=== PATIENT | male | born 1930 | race Caucasian/White ===

== ENCOUNTER 2017-05-01 14:26 | Observation (INO) ==
--- OUTSIDE RECORDS SUMMARY | 2017-05-01 15:17 | External Medical Summary ---
:1930 Author Organization eClinicalWorks Care Team Providers Name Role Phone Heavenly Montejo Provider Role Unavailable Allergies No Known Allergies Problems Problem Type Condition Code Onset Dates Condition Status Problem Unspecified atrial fibrillation I48.91 Active Problem Chronic obstructive pulmonary J44.9 Active disease, unspecified Problem Essential (primary) hypertension I10 Active Assessment Unspecified atrial fibrillation I48.91 Active Medications Medication Code System Code Instructions Start End Date Status Dosage Date Budesonide [facility] 42989-972 0.5 MG/2ML 1 ml 6-73 Inhalation Twice a day Brovana [facility] 72385-718 15 MCG/2ML 2 ml 1-30 Inhalation Twice a day Losartan [facility] 07723-102 25 MG Orally Once 1 tablet Potassium 3-22 a day Warfarin Sodium [facility] 88453-999 1 MG Orally take 1 tablet 1-01 as directed Procedures Procedure Coding System Code Date PROTIME INR, IN HOUSE CPT-4 12592 Mar 12, 2015 Results Name Result Date Reference Range Unit Abnormality Flag In House Protime INR ----results 2.8 [id number] Summary Purpose eClinicalWorks Submission
--- OUTSIDE RECORDS SUMMARY | 2017-05-01 15:17 | External Medical Summary ---
:1930 Author Organization [employer] Care Team Providers Name Role Phone Heavenly Montejo Provider Role Unavailable Allergies No Known Allergies Problems Problem Type Condition ICD-9 Code Onset Dates Condition Status Assessment Atrial fibrillation 427.31 Active Medications No Known Medications Procedures Procedure Coding System Code Date PROTIME INR, IN HOUSE CPT-4 15117 Nov 27, 2014 Results Name Result Date Reference Range Unit Abnormality Flag In House Protime INR Summary Purpose eClinicalWorks Submission
--- OUTSIDE RECORDS SUMMARY | 2017-05-01 15:17 | External Medical Summary ---
:1930 Author Organization eClinicalWorks Care Team Providers Name Role Phone Heavenly Montejo Provider Role Unavailable Allergies No Known Allergies Problems Problem Type Condition Code Onset Dates Condition Status Problem Unspecified atrial fibrillation I48.91 Active Problem Chronic obstructive pulmonary J44.9 Active disease, unspecified Problem Essential (primary) hypertension I10 Active Assessment Chronic obstructive pulmonary J44.9 Active disease, unspecified Assessment Essential (primary) hypertension I10 Active Assessment Unspecified atrial fibrillation I48.91 Active Medications Medication Code System Code Instructions Start End Date Status Dosage Date Budesonide [facility] 29521-377 0.5 MG/2ML 1 ml 6-73 Inhalation Twice a day Losartan [facility] 91047-477 25 MG Orally Once 1 tablet Potassium 3-22 a day Brovana [facility] 98141-368 15 MCG/2ML 2 ml 1-30 Inhalation Twice a day Warfarin Sodium [facility] 73502-690 3 MG Orally Two 1 tablet 3-01 times a Week Procedures Procedure Coding System Code Date COMPLETE CBC W/AUTO DIFF WBC CPT-4 37162 Dec 25, 2014 COMPREHENSIVE METABOLIC PANEL CPT-4 87164 Dec 25, 2014 PROTIME INR, IN HOUSE CPT-4 67933 Dec 25, 2014 LIPID PANEL CPT-4 13705 Dec 25, 2014 Results Name Result Date Reference Range Unit Abnormality Flag In House Protime INR Summary Purpose eClinicalWorks Submission
[2017-05-01] MEDS ORDERED: SALINE FLUSH 10ml SYRINGE IVF PRN (15:24)
[2017-05-01] MEDS ORDERED: ALBUTEROL/IPRATROPIUM 2.5mg-0.5mg/3ml NEB IH ONE (15:24)
--- NOTE | 2017-05-01 16:03 | Emergency Department Report ---
Asthma HPI - General Chief Complaint: Upper Respiratory Infection Stated Complaint: cough chest pain Time Seen by Provider: 05/01/17 15:09 Source: patient, family, RN notes reviewed, old records reviewed Mode of arrival: ambulatory Limitations: no limitations - History of Present Illness HPI Narrative: 87yo man presents to the ER today for dyspnea. Pt was c/o some dyspnea earlier today; they asked a friend (a former [employer]) to come listen to pts lungs. Friend brought a pulse oximeter and SaO2 was read as 86%. Friend then referred pt to the ER for further evaluation. Pt has a h/o COPD; has a rescue inhaler, but does not use it regularly. MD complaint: shortness of breath Onset (ago): hour(s) Severity: moderate, similar to prior Context: other (COPD) Associated symptoms: none Treatments Prior to Arrival: inhaled bronchodilator, inhaled steroid, oxygen - Related Data Current Asthma Therapy: inhaled bronchodilator, inhaled steroid Home Medications Medication Instructions Recorded Confirmed Arformoterol Neb [Brovana Neb] 1 vial INH DAILY 01/07/17 05/01/17 Budesonide [Budesonide] 1 ampul INH DAILY 01/07/17 05/01/17 Losartan Potassium [Cozaar] 25 mg PO DAILY 01/07/17 05/01/17 Warfarin [Coumadin] 2 mg PO QTUTHSASU 01/07/17 05/01/17 Warfarin [Coumadin] 3 mg PO QMWF 01/07/17 05/01/17 Allergies Allergy/AdvReac Type Severity Reaction Status Date / Time No Known Drug Allergies Allergy Unknown Verified 05/01/17 15:10 Review of Systems All systems: reviewed and negative except as stated Respiratory: Reports: as per HPI, cough, dyspnea, wheezes. Denies: hemoptysis, stridor [facility] Patient Stated Medical History Hearing Loss Yes Cardiac Arrhythmia Yes: A FIB Hypertension Yes Chronic Obstructive Pulmonary Yes Disease (COPD) Pneumonia Yes: HX OF Sleep Apnea No Other GI Yes: HERNIA Hx Benign Prostatic Yes Hyperplasia Hx Kidney Stones Yes Clinic Medical History (Last Updated 02/16/17 @ 11:57 by Stephanie Cartagena APRN) Atrial fibrillation (Acute Medical) COPD (chronic obstructive pulmonary disease) (Acute Medical) HTN (hypertension) (Acute Medical) Stones, prostate (Acute Medical) Surgical History: Inguinal hernia repair 3 and 1972 Family History: Family History (Last Updated 02/16/17 @ 12:00 by Stephanie Cartagena APRN) Father Stomach cancer Mother Diabetes Heart attack HTN (hypertension) - Social History Smoking status: Former smoker Physical Exam - Limitations Limitations: no limitations - General General appearance: alert, in no apparent distress, obese - Normal Exams: Head:: Normocephalic without trauma Eyes:: Pupils are PERRLA w/ EOMI, No scleral icterus, irritation, or foreign bodies noted ENMT:: No facial trauma, nasal exudates, pharyngeal erythema, or exudates are noted Neck:: Full range of motion, without adenopathy Lymphatic:: No lymphadenopathy Musculoskeletal:: No tenderness, or deformity noted, good range of motion Integumentary:: No rashes, hives, or bruising noted Neurological:: Patient is alert, and oriented Psychiatric:: Patient exhibits, appropriate attention - Chest Chest inspection: Present: normal inspection, symmetric chest wall rise - Respiratory Respiratory exam: Present: wheezes, prolonged expiratory phase. Absent: normal lung sounds bilaterally (No air movement in lower lobes), respiratory distress, stridor, crackles - Cardiovascular Cardiovascular exam: Present: normal rhythm, irregular rhythm, normal heart sounds. Absent: regular rate - Abdominal Exam Abdominal exam: Present: soft, normal bowel sounds, other (Ventral hernia just inferior to xyphoid process). Absent: distention, tenderness, guarding, rebound , rigidity - Extremities Exam Extremities exam: Present: normal inspection, full ROM, normal capillary refill. Absent: tenderness, pedal edema Course - Consultations Consultation #1: Dr. Jacinto: Recommends overnight obs with echo in the AM. Time: 17:26 Consultation #2: Hospitalist: Time: 17:39 Vital Signs Temperature 98.3 F 05/01/17 14:30 Pulse Rate 95 05/01/17 14:30 Respiratory Rate 28 H 05/01/17 14:30 Blood Pressure 158/91 H 05/01/17 14:30 Pulse Oximetry 94 05/01/17 14:30 Temperature 98.3 F 05/01/17 14:30 Pulse Rate 86 05/01/17 17:15 Respiratory Rate 30 H 05/01/17 17:15 Blood Pressure 145/79 H 05/01/17 17:15 Pulse Oximetry 95 05/01/17 17:15 Dyspnea - MDM Narrative Medical decision making narrative: Pt with new-onset CHF. Sx improved with IV lasix. After discussion with note taker, will contact hospitalist for overnight obs and echo in the AM. Pt voiced understanding of dx, prognosis, tx, and f/u need. - Differential Diagnosis Differential diagnosis: Likely: Pneumonia, COPD exacerbation, Pulmonary edema systolic, Pulmonary edema dystolic, Pneumothorax - Medical Records Attestation: I reviewed the patient's medical records. - Lab Data Attestation: I reviewed the patient's lab results. Result diagrams: 05/01/17 15:57 05/01/17 15:57 Lab Results 05/01/17 05/01/17 05/01/17 Range/Units 15:57 15:57 16:58 WBC 8.2 (4.5-11.0) T/MM3 RBC 5.70 (4.50-5.90) M/MM3 Hgb 17.8 H (13.5-17.5) GM/DL Hct 55.1 H (41-53) % MCV 96.7 (80-100) UM3 MCH 31.2 (26-34) UUG MCHC 32.3 (31-37) GM/DL RDW Std Deviation 48.6 (36.9-50.2) FL Plt Count 134 (130-400) T/MM3 MPV 10.3 (9.4-12.4) UM3 Immature Gran % (Auto) 0.2 (0.0-0.5) % Neut % (Auto) 69.1 H (33-66) % Lymph % (Auto) 19.9 L (23-45) % [place] % (Auto) 10.2 H (0-9.0) % Eos % (Auto) 0.2 (0-4) % Baso % (Auto) 0.4 (0-2) % Neut # (Auto) 5.7 (1.8-7.7) T/MM3 Lymph # (Auto) 1.6 (1-4.8) T/MM3 [place] # (Auto) 0.8 (0-0.8) T/MM3 Eos # (Auto) 0.0 (0-0.5) T/MM3 Baso # (Auto) 0.0 (0-0.2) T/MM3 Abs Immat Gran (auto) 0.02 (0.00-0.03) T/MM3 Turbidity < 20 (0-20) Sodium 145 H (134-144) MEQ/L Potassium 4.6 (3.6-5) MEQ/L Chloride 103 (98-107) MEQ/L Carbon Dioxide 30 (22-30) MEQ/L Anion Gap 12 (5-15) MEQ/L BUN 33.0 H (9-20) MG/DL Creatinine 1.2 (0.8-1.5) MG/DL GFR Calculation 57 BUN/Creatinine Ratio 28 H (6-26) RATIO Glucose 112 H (75-110) MG/DL Calculated Osmolality 287 H (261-280) MOSM/KG Calcium 9.4 (8.4-10.2) MG/DL Icterus Index < 2 (0-7) Troponin I < 0.012 (0-0.12) ng/ml B-Natriuretic Peptide 1210 H (0-175) pg/mL Specimen Hemolysis < 15 (0-25) Ur Collection Type Urine, void-cc/notcc Urine Color Yellow (YELLOW) Urine Clarity Clear Urine pH 5.5 (5.0-8.0) Ur Specific [place] 1.020 (1.015-1.025) Urine Protein 1+ A (NEGATIVE) Urine Glucose (UA) Negative (NEGATIVE) Urine Ketones Negative (NEGATIVE) Urine Occult Blood 3+ A (NEGATIVE) Urine Nitrate Negative (NEGATIVE) Urine Bilirubin Negative (NEGATIVE) Urine Urobilinogen 0.2 (NORMAL) EU/DL Ur Leukocyte Esterase Negative (NEGATIVE) Urine RBC 10-20 H (0-3) /HPF Urine WBC 0-1 (0-5) /HPF Ur Squamous Epith Cells 0-5 Urine Bacteria Trace H (NEGATIVE) Ur Culture Indicated? Cult not indicated - Radiology Data Attestation: I reviewed the patient's radiology results. CXR: Improved chest. No acute CT pathology. B/l lower lobe parenchymal opacities c/w pulm congestion vs atalectasis - EKG Data EKG #1 EKG attestation: Yes: I reviewed and interpreted this EKG. EKG shows normal: axis, intervals, ST-T waves Rhythm: A.Fib, PVC's Disposition Clinical Impression: CHF (congestive heart failure) Qualifiers: Heart failure type: unspecified Heart failure chronicity: acute Qualified Code( s): I50.9 - Heart failure, unspecified Disposition: 02 To OBS [facility] Print Language: [place] Condition: Improved Prescriptions: No Action Warfarin [Coumadin] 2 mg PO QTUTHSASU Arformoterol Neb [Brovana Neb] 1 vial INH DAILY Losartan Potassium [Cozaar] 25 mg PO DAILY Warfarin [Coumadin] 3 mg PO QMWF Budesonide [Budesonide] 1 ampul INH DAILY Referrals: Meenakshi Crump APRN [Family Provider] - Time of Disposition: 17:45 - Seen By: physician
[2017-05-01] MEDS ORDERED: FUROSEMIDE 40 MG/4 ML INJECTION IVP ONE (16:29)
[2017-05-01 18:43] VITALS: BMI 25.9
[2017-05-01] MEDS ORDERED: ONDANSETRON 4 MG/2 ML INJECTION IVP PRN (18:57)
[2017-05-01] MEDS ORDERED: ACETAMINOPHEN 325 MG TABLET PO PRN (18:57)
[2017-05-01] MEDS ORDERED: MORPHINE SULFATE 2mg INJECTION IVP PRN (18:57)
[2017-05-01] MEDS ORDERED: ALBUTEROL/IPRATROPIUM 2.5mg-0.5mg/3ml NEB AEROSOL PRN (19:01)
--- NOTE | 2017-05-01 19:13 | XRay Report ---
Indication: Dyspnea XR chest 2V: Comparison: 03/10/2017 Technique: 2 view chest Findings: Patient showed normal heart, mediastinum and central vascularity. Along the right lateral chest wall a questional subtle density is identified which is slightly better delineated on the current study. Follow-up in the 2-3 months recommended to reassess this potential finding. Impression: Since prior study the heart, mediastinum and central vascularity are stable. Questionable subtle area of slightly more localized density laterally in the right mid chest. .
--- NOTE | 2017-05-01 20:10 | History & Physical Report ---
History of Present Illness Date: 05/01/17 Chief complaint: shortness of breath HPI: Mr. Arnett is an 87-year-old male who presented to the emergency room today after oxygen saturation was evaluated by a friend when the patient complained of dyspnea. His oxygen saturation was found to be 86% and his friend recommended that he have further evaluation in the emergency room. Patient has a history of COPD and has used an inhaler in the past but does not do so regularly. He describes being short of breath for 2-3 months with occasional wheezing and feeling as though his chest has been congested. He has a cough which has been productive of yellow sputum. He denies fever, chills, or sweats but reports he is cough frequently enough that it now hurts when he coughs although he has no pain with deep inspiration. He doesn't believe he has been retaining fluid and he's had no difficulty breathing laying flat. He denies PND. Chest x-ray in the emergency room was interpreted's having some increased vascular markings and proBNP was modestly elevated. The emergency room physician discussed the case with his telecom sales consultant and the patient was subsequently treated with a dose of Lasix. He is being hospitalized now for reassessment and further evaluation. The patient denies any chest pain unrelated to cough and has had no palpitations. Review of Systems All systems PM: 10-point ROS was reviewed, no additional remarkable complaints except (hearing loss, bruises easily, several episodes of epistaxis in the past 1-2 weeks, remainder of review of systems was negative or as per history of present illness.) Past Medical History Past Medical History Atrial fibrillation COPD (chronic obstructive pulmonary disease) HTN (hypertension) Nephrolithiasis History BPH Surgical History: Inguinal hernia repair x3 1979's and 1972, TURP, cystoscopy/ lithotripsy and insertion of left ureteral stent 2010 Family History: Family History (Last Updated 02/16/17 @ 12:00 by Stephanie Cartagena APRN) Father Stomach cancer Mother Diabetes Heart attack HTN (hypertension) Family History Updates: Sister is of unknown causes - Social History Smoking status: Former smoker (discontinued more than 20 years) Substance use type: does not use Alcohol intake frequency: does not drink Household members: spouse Current occupational status: retired ([place] in [place]) Social history: PCP-Leyla Crump APRN Cardiology-Dr. Mendoza Jacinto Full code Alternate decision maker the patient's -Clair Medications Home Medications Medication Instructions Recorded Confirmed Type Arformoterol Neb [Brovana Neb] 1 vial INH DAILY 01/07/17 05/01/17 History Budesonide [Budesonide] 1 ampul INH DAILY 01/07/17 05/01/17 History Losartan Potassium [Cozaar] 25 mg PO DAILY 01/07/17 05/01/17 History Warfarin [Coumadin] 2 mg PO QTUTHSASU 01/07/17 05/01/17 History Warfarin [Coumadin] 3 mg PO QMWF 01/07/17 05/01/17 History Allergies Allergy/AdvReac Type Severity Reaction Status Date / Time No Known Drug Allergies Allergy Unknown Verified 05/01/17 15:10 Exam Vital Signs: Temperature 96.8 F 05/01/17 18:25 Pulse Rate 91 05/01/17 18:25 Respiratory Rate 24 05/01/17 18:25 Blood Pressure 160/77 H 05/01/17 18:25 Pulse Oximetry 92 - RA 05/01/17 18:25 EXAM: General-NAD, alert, hard of hearing HEENT-PERRL, EOMI without nystagmus, conjugate gaze, conjunctiva clear, sclera anicteric, facial structures symmetric, oropharynx clear, neck supple and without adenopathy Lungs-respirations nonlabored, good airflow, faint wheezes posterior waters, anterior waters clear Cardiac-irregular rhythm, S1-S2; lying with head of bed raised approximately 20 Abd-soft, nontender, without palpable mass, bowel sounds present Ext-without edema Skin-large bruise at the left wrist, increased vascularity over the cheeks bilaterally Neuro-cranial nerves 3-12 intact except hearing loss, motor tone/power within normal limits, sensation intact to light touch/cold 4 extremities Psych-calm, cooperative, euthymic Height/Weight/BMI: Height 1.7 m Weight 75 kg Body Mass Index 25.9 Results - Labs CBC & Chem 7: 05/01/17 15:57 05/01/17 15:57 Labs: Troponin nondetectable in the ER ProBNP 1210 UA with +3 occult blood, 10-20 RBC, 0-1 WBC - Imaging and Cardiology Chest x-ray Status: image reviewed by me (heart size normal, NAD, possibly slightly increased vascular markings although not dramatic.) Assessment and Plan (1) Hypoxia Current visit: Yes Status: Acute Assessment and Plan: Impression: Hypoxia, transient Dyspnea, chronic CHF with exacerbation COPD, possible exacerbation Atrial fibrillation, chronic Hypertension Elevated hemoglobin Plan: Diuresis was initiated in the emergency room, monitor oxygenation overnight. Consult Dr. Jacinto. Serial troponins, echocardiogram in a.m. Monitor on telemetry. Home breathing treatments with Pulmicort and Brovana (both increased to twice a day), albuterol/Atrovent as needed. Respiratory viral panel and sputum culture being obtained. Oxygenation transiently depressed in the emergency room although subsequently stable on room air. Overnight oximetry to be obtained. Several episodes of epistaxis recently-INR to be evaluated in a.m.; Hold warfarin pending results. Blood pressure modestly elevated, reassess in a.m. DVT Prophylaxis: Coumadin Resuscitation Status: Full Code - Physician Narrative Narrative: Date: 05/01/17 Time: 2006 Hospital Course Summary Disclaimer: The visit summary below is not to be considered part of the above Progress Note. Hospital Course: 05/01/17 Admitted with dyspnea, cough, and transient hypoxia. Diuresis was initiated in the emergency room, monitor oxygenation overnight. Consult Dr. Jacinto. Serial troponins, echocardiogram in a.m. Monitor on telemetry. Home breathing treatments with Pulmicort and Brovana (both increased to twice a day), albuterol/Atrovent as needed. Respiratory viral panel and sputum culture being obtained. Oxygenation transiently depressed in the emergency room although subsequently stable on room air. Overnight oximetry to be obtained. Several episodes of epistaxis recently-INR to be evaluated in a.m.; Hold warfarin pending results. Blood pressure modestly elevated, reassess in a.m. Full code.
[2017-05-01] MEDS: BUDESONIDE 0.5 MG/2 ML AEROSOL SCH (21:06)
[2017-05-01] MEDS: ARFORMOTEROL 15 MCG/2 ML AEROSOL SCH (21:06)
[2017-05-02 05:19] VITALS: O2SAT 94
[2017-05-02] MEDS: ARFORMOTEROL 15 MCG/2 ML AEROSOL SCH (07:30)
[2017-05-02] MEDS: BUDESONIDE 0.5 MG/2 ML AEROSOL SCH (07:30)
[2017-05-02 07:44] VITALS: RESP 20
[2017-05-02] MEDS ORDERED: ARFORMOTEROL NEB 15mcg/2ml AEROSOL SCH ×2 (09:00)
[2017-05-02] MEDS ORDERED: LOSARTAN 25 MG PO SCH (09:00)
[2017-05-02] MEDS ORDERED: WARFARIN 4 MG TABLET PO SCH (12:00)
--- NOTE | 2017-05-02 12:56 | Cardiology Consult Note ---
<Shantal Garcia Gregorio - Last Filed: 05/02/17 19:08> History of Present Illness Consult reason: shortness of breath History of present illness: Mr. Bj Arnett is a 87 year old male who has a history of atrial fibrillation on Warfarin, COPD and HTN. Pt was complaining of dyspnea yesterday and friend came over with oxygen sat and it was 85%. brought to ER. In ER, he had elevated BNP and Lasix was given - pt had large urine output so heart failure was questioned. Pt has had cough with yellow/green sputum for last 5-6 days due to a cold he said. Pt denied chest pain, heart palpitations, dizziness/ lightheadedness. Pt denies PND or orthopnea. Pt complains of epigastric pain toward bilateral breasts - he felt like he was getting full. Pt said the fullness lasted only a few minutes. Coughing aggravated the pain and was relieved when he quit coughing. Pt has hx of COPD - does not wear O2 at home. Pt 's is at bedside. Pt sees Dr. Luke in [place]. Pt is on Warfarin - every Tuesday INR is checked by [place] Mcguire. Pt is positive for influenza A. Review of Systems All systems PM: 10-point ROS was reviewed, no additional remarkable complaints except (hard of hearing, + epistaxis in last 1-2 weeks) [facility] Medical History (Last Updated 05/01/17 @ 20:42 by Perla Calderon MD) Stones, prostate (Ruled-out Medical) COPD (chronic obstructive pulmonary disease) (Acute Medical) HTN (hypertension) (Chronic Medical) Atrial fibrillation (Chronic Medical) BPH (benign prostatic hyperplasia) (Resolved Medical) Nephrolithiasis (Resolved Medical) Surgical History: Inguinal hernia repair x3 1979's and 1972, TURP, cystoscopy/ lithotripsy and insertion of left ureteral stent 2010 Family History: Family History (Last Reviewed 05/01/17 @ 20:15 by Perla Calderon MD) Father Stomach cancer Mother Diabetes Heart attack HTN (hypertension) - Social History Smoking status: Former smoker (discontinued more than 20 years) Medications Home Medications Medication Instructions Recorded Confirmed Type Losartan Potassium [Cozaar] 25 mg PO DAILY 01/07/17 05/01/17 History Allergies Allergy/AdvReac Type Severity Reaction Status Date / Time No Known Drug Allergies Allergy Unknown Verified 05/01/17 15:10 Exam Vital signs: Temperature 95.4 F L 05/02/17 08:12 Pulse Rate 85 05/02/17 10:00 Respiratory Rate 20 05/02/17 08:12 Blood Pressure 133/81 05/02/17 08:12 Pulse Oximetry 94 05/02/17 08:12 - Constitutional no acute distress, well developed, cooperative - Routine HEENT Exam Head: Present: normocephalic, atraumatic Eye: Present: EOMI, PERRL ENT: Present: mucous membranes moist - Routine Neck Exam Present: supple, full ROM, normal carotid upstroke. Absent: JVD, carotid bruit - Routine Respiratory Exam Present: CTA bilaterally, diminished air movement - Routine Cardiovascular Exam Present: irregularly irregular. Absent: no murmur, gallop, rubs - Routine Abdominal Exam Present: soft, normoactive bowel sounds, non distended, non tender. Absent: rebound, guarding, organomegaly, mass - Routine Extremities Exam Present: no edema, pulses intact, normal capillary refill. Absent: cyanosis, clubbing, edema - Routine Skin Exam Present: intact, dry, lesions (bilateral LE varicosities), scars (L ankle). Absent: cyanosis, erythema - Routine Neurological Exam Present: alert, oriented X3, CN II-XII intact, moving all extremities, vision grossly intact, normal speech - Routine Psychiatric Exam Present: normal affect, cooperative Results 05/02/17 04:17 05/02/17 04:17 Cardiac Enzymes 05/01/17 05/02/17 Range/Units 21:43 04:17 Troponin I 0.028 D 0.020 (0-0.12) ng/ml CBC 05/02/17 Range/Units 04:17 WBC 6.9 (4.5-11.0) T/MM3 RBC 5.61 (4.50-5.90) M/MM3 Hgb 17.4 (13.5-17.5) GM/DL Hct 53.7 H (41-53) % Plt Count 135 (130-400) T/MM3 Neut # (Auto) 4.1 (1.8-7.7) T/MM3 Lymph # (Auto) 1.8 (1-4.8) T/MM3 Menard # (Auto) 0.9 H (0-0.8) T/MM3 Eos # (Auto) 0.0 (0-0.5) T/MM3 Baso # (Auto) 0.0 (0-0.2) T/MM3 Comprehensive Metabolic Panel 05/02/17 Range/Units 04:17 Sodium 144 (134-144) MEQ/L Potassium 4.3 (3.6-5) MEQ/L Chloride 101 (98-107) MEQ/L Carbon Dioxide 30 (22-30) MEQ/L BUN 36.0 H (9-20) MG/DL Creatinine 1.2 (0.8-1.5) MG/DL Glucose 105 (75-110) MG/DL Calcium 9.4 (8.4-10.2) MG/DL Albumin 4.1 (3.5-5.0) G/DL Intake and Output 05/01/17 05/02/17 05/02/17 22:59 06:59 14:59 Intake Total 200 / 200 190 / 190 Output Total 550 / 550 Balance -550 / -550 200 / 200 190 / 190 Intake: Oral 200 / 200 190 / 190 Output: Urine 550 / 550 Other: Urine Appearance Clear Urine Color Yellow Urine Odor Normal # Voids 1 Weight 75 kg 74 kg Patient Weight 05/03/17 06:59 Weight 74 kg - Imaging and Cardiology EKG results: image reviewed (atrial fibrillation in 60s-80s with occasional PVC ; 3 beats NSVT) Imaging & Cardiology Narrative: 05/02/17 13:35 CXR on 05/01/17 Since prior study the heart, mediastinum and central vascularity are stable. Questionable subtle area of slightly more localized density laterally in the right mid chest. 05/02/17 13:37 per pt and , August 2016 was last nuclear stress test with Dr. Luke and it was negative 05/02/17 19:04 Echo 05/02/17 Please refer to echo report. Assessment and Plan - Assessment and Plan elevated BNP without clinical or radiographical evidence of heart failure atrial fibrillation, chronic - on Warfarin NSVT, asymptomatic COPD exacerbation with influenza A No BB for NSVT d/t wheezing. Clear from our standpoint to send home. Pt was personally seen and interviewed by Dr. [place] Jacinto who created the A&P. Hospital Course Summary Disclaimer: The visit summary below is not to be considered part of the above Progress Note. Hospital Course: 05/01/17 Admitted with dyspnea, cough, and transient hypoxia. Diuresis was initiated in the emergency room, monitor oxygenation overnight. Consult Dr. Jacinto. Serial troponins, echocardiogram in a.m. Monitor on telemetry. Home breathing treatments with Pulmicort and Brovana (both increased to twice a day), albuterol/Atrovent as needed. Respiratory viral panel and sputum culture being obtained. Oxygenation transiently depressed in the emergency room although subsequently stable on room air. Overnight oximetry to be obtained. Several episodes of epistaxis recently-INR to be evaluated in a.m.; Hold warfarin pending results. Blood pressure modestly elevated, reassess in a.m. Full code. <Riddhi Jacinto - Last Filed: 05/02/17 19:47> [facility] Medical History (Last Updated 05/01/17 @ 20:42 by Perla Calderon MD) Stones, prostate (Ruled-out Medical) COPD (chronic obstructive pulmonary disease) (Acute Medical) HTN (hypertension) (Chronic Medical) Atrial fibrillation (Chronic Medical) BPH (benign prostatic hyperplasia) (Resolved Medical) Nephrolithiasis (Resolved Medical) Family History: Family History (Last Reviewed 05/01/17 @ 20:15 by Perla Calderon MD) Father Stomach cancer Mother Diabetes Heart attack HTN (hypertension) Exam Vital signs: Temperature 97.8 F 05/02/17 15:21 Pulse Rate 67 05/02/17 17:15 Respiratory Rate 20 05/02/17 15:21 Blood Pressure 116/73 05/02/17 15:21 Pulse Oximetry 94 05/02/17 15:21 Results 05/02/17 04:17 05/02/17 04:17 Cardiac Enzymes 05/01/17 05/02/17 Range/Units 21:43 04:17 Troponin I 0.028 D 0.020 (0-0.12) ng/ml CBC 05/02/17 Range/Units 04:17 WBC 6.9 (4.5-11.0) T/MM3 RBC 5.61 (4.50-5.90) M/MM3 Hgb 17.4 (13.5-17.5) GM/DL Hct 53.7 H (41-53) % Plt Count 135 (130-400) T/MM3 Neut # (Auto) 4.1 (1.8-7.7) T/MM3 Lymph # (Auto) 1.8 (1-4.8) T/MM3 Menard # (Auto) 0.9 H (0-0.8) T/MM3 Eos # (Auto) 0.0 (0-0.5) T/MM3 Baso # (Auto) 0.0 (0-0.2) T/MM3 Comprehensive Metabolic Panel 05/02/17 Range/Units 04:17 Sodium 144 (134-144) MEQ/L Potassium 4.3 (3.6-5) MEQ/L Chloride 101 (98-107) MEQ/L Carbon Dioxide 30 (22-30) MEQ/L BUN 36.0 H (9-20) MG/DL Creatinine 1.2 (0.8-1.5) MG/DL Glucose 105 (75-110) MG/DL Calcium 9.4 (8.4-10.2) MG/DL Albumin 4.1 (3.5-5.0) G/DL Intake and Output 05/02/17 05/02/17 05/02/17 06:59 14:59 22:59 Intake Total 200 / 200 190 / 190 Output Total 450 / 450 Balance 200 / 200 190 / 190 -450 / -450 Intake: Oral 200 / 200 190 / 190 Output: Urine 450 / 450 Other: Urine Appearance Clear Urine Color Yellow Urine Odor Normal # Voids 1 Weight 74 kg Patient Weight 05/03/17 06:59 Weight 74 kg Assessment and Plan - Assessment and Plan I personally interviewed and examined pt and agree with the above Hospital Course Summary Disclaimer: The visit summary below is not to be considered part of the above Progress Note.
[2017-05-02] MEDS ORDERED: PredniSONE 20 MG TABLET PO SCH (14:39)
[2017-05-02 15:24] VITALS: BP 116/73; TEMP 97.8
[2017-05-02 17:15] VITALS: PULSE 67
--- NOTE | 2017-05-02 20:00 | Echocardiogram ---
DATE OF STUDY 05/02/2017 INDICATIONS Elevated BNP, hypoxemia, ? congestive heart failure. TECHNICAL QUALITY Technically good 2D, M-mode, Doppler echocardiographic images were submitted for interpretation. FINDINGS 1. CARDIAC CHAMBERS: All cardiac chamber measurements are normal. My measurement of the left atrium remains normal. Aortic root diameter is normal. RV size and contractility appear normal. On apical four-chamber view both atria appear elongated. Volume was not measured. The findings suggest a degree of biatrial enlargement. RV appears also borderline enlarged on the same view. 2. LEFT VENTRICLE: Mild concentric LVH is present. Wall thickness measures 14 mm in the posterior and septal wall. Wall motion analysis is normal. Systolic function is normal. EF 68%. Diastolic function parameters are normal. 3. VALVES: Aortic valve is trileaflet and exhibits sclerotic changes. Valve opening appears preserved. Mitral valve exhibits annular calcification of a mild degree. Tricuspid and pulmonic valve structure and motion appear normal with normal valve excursion. 4. DOPPLER: Moderate tricuspid regurgitation. Yybu-[id number]-sdqtjrrb aortic insufficiency. Mild mitral regurgitation. Mild pulmonic insufficiency. 5. Central venous pressure is normal based on IVC size and collapse. 6. Systolic PA pressure estimated at 47 mmHg which is mildly increased. 7. No evidence of intracardiac masses, thrombi, vegetations or shunts. IMPRESSION 1. Biatrial enlargement. 2. Concentric LVH with normal systolic function, EF 68%. 3. Preserved diastolic function and parameters. 4. Aortic valve sclerosis without stenosis. At least [id number] aortic regurgitation (2+). 5. Moderate tricuspid regurgitation. 6. Mild pulmonic insufficiency. 7. Very mild mitral regurgitation. 8. Mild pulmonary hypertension. 9. Borderline RV enlargement with good contractility. MTDD
--- NOTE | 2017-05-02 23:08 | Discharge Summary ---
Discharge Information Date of admission: 05/01/17 17:46 Anticipated date of discharge: 05/02/17 Attending Physician: Perla Calderon MD Primary care physician: Meenakshi Crump APRN Consults: Consulting Provider: Riddhi Jacinto Reason For Exam: CHF - Discharge Diagnosis (1) Hypoxia Status: Acute COPD with exacerbation Influenza A Hypoxia, transient Dyspnea, chronic CHF with exacerbation; ruled out Atrial fibrillation, chronic Hypertension Elevated hemoglobin Aortic insufficiency, tricuspid regurgitation Possible polycythemia Possible soft tissue density right lateral chest wall - Procedures Procedures: Echocardiogram on 05/02/17: 1. Biatrial enlargement. 2. Concentric LVH with normal systolic function, EF 68%. 3. Preserved diastolic function and parameters. 4. Aortic valve sclerosis without stenosis. At least [id number] aortic regurgitation (2+). 5. Moderate tricuspid regurgitation. 6. Mild pulmonic insufficiency. 7. Very mild mitral regurgitation. 8. Mild pulmonary hypertension. 9. Borderline RV enlargement with good contractility ------ Overnight oximetry on room air -05/02/17 Sporadic desaturation with total of 6 minutes with oxygen saturation less than 89% demonstrated, lowest oxygen saturation recorded was 81%. - Laboratory Labs: On admission hemoglobin was 17.8, creatinine 1.2 with GFR 57, proBNP 1210 Troponin <0.012-0.028-0.020 05/02/17 04:17 05/02/17 04:17 INR on the date of discharge is 1.67 - Microbiology Respiratory viral panel positive for influenza A-H3 - Radiology Radiology: Chest x-ray on 05/01/17: Patient showed normal heart, mediastinum and central vascularity. Along the right lateral chest wall a questional subtle density is identified which is slightly better delineated on the current study. Follow-up in the 2-3 months recommended to reassess this potential finding. Impression: Since prior study the heart, mediastinum and central vascularity are stable. Questionable subtle area of slightly more localized density laterally in the right mid chest. History of Present Illness HPI: Mr. Arnett is an 87-year-old male who presented to the emergency room today after oxygen saturation was evaluated by a friend when the patient complained of dyspnea. His oxygen saturation was found to be 86% and his friend recommended that he have further evaluation in the emergency room. Patient has a history of COPD and has used an inhaler in the past but does not do so regularly. He describes being short of breath for 2-3 months with occasional wheezing and feeling as though his chest has been congested. He has a cough which has been productive of yellow sputum. He denies fever, chills, or sweats but reports he is cough frequently enough that it now hurts when he coughs although he has no pain with deep inspiration. He doesn't believe he has been retaining fluid and he's had no difficulty breathing laying flat. He denies PND. Chest x-ray in the emergency room was interpreted's having some increased vascular markings and proBNP was modestly elevated. The emergency room physician discussed the case with his house calls nurse practitioner and the patient was subsequently treated with a dose of Lasix. He is being hospitalized now for reassessment and further evaluation. The patient denies any chest pain unrelated to cough and has had no palpitations. Objective Vital signs: Temperature 97.8 F 05/02/17 15:21 Pulse Rate 67 05/02/17 17:15 Respiratory Rate 20 05/02/17 15:21 Blood Pressure 116/73 05/02/17 15:21 Pulse Oximetry 94 - RA 05/02/17 15:21 NAD, alert; cheeks flushed/wojciech Respirations nonlabored, good airflow, occasional wheezing Irregular cardiac rhythm, S1-S2, rate controlled Abdomen benign No lower extremity edema Height/Weight/BMI: Height 1.7 m Weight 74 kg Body Mass Index 25.9 Hospital Course This is a general summary of the patient's hospital course. For more details refer to the complete medical record. Hospital course: Mr. Arnett was admitted with dyspnea, cough, and transient hypoxia identified earlier in the day. Diuresis was initiated in the emergency room after chest x- ray was initially interpreted as suggesting mild heart failure and proBNP was modestly elevated. Emergency room discussed initial findings with Dr. Jacinto and he requested that echocardiogram be scheduled. The study was obtained on and demonstrated preserved systolic and diastolic function although some valvular dysfunction was identified most notably aortic insufficiency. Dr. Jacinto evaluated the patient on 05/02 and did not feel there was clinical evidence of heart failure. He noted an isolated 3 beat run of NSVT on telemetry but did not recommend beta erica therapy due to patient's respiratory symptoms and wheezing. No further interventions were recommended at this time. Continued follow-up with usual house calls nurse practitioner advised. Influenza A was identified on the evening of admission; breathing treatments were initiated. It's impossible to determine onset of the viral infection as the patient has no recent change in symptoms today to infection. Hence Tamiflu was not initiated nor was the patient interested in Tamiflu. I suspect presentation was due to COPD exacerbation and low-grade COPD for several months with subtle worsening with viral infection. Patient was advised to increase frequency of breathing treatments with Brovana and Pulmicort to twice a day and to continue use of albuterol when necessary. Brief course of prednisone for pulmonary inflammation was initiated as outlined below. Recurrent hypoxia while awake was not identified however minor nocturnal hypoxia was present; the patient's reports he's had multiple past overnight oximetries done which always been normal and the patient reported he doesn't wish to have oxygen started at this time. INR was depressed at 1.67 on the date of discharge; his reports that INR was low a week ago although improved from what it was rechecked about 5 days ago. He received 4 mg of warfarin on the date of discharge and dose was increased slightly to 3 mg-4 days a week and 2 mg-3 days a week. Questionable abnormality was described by radiology on chest x-ray and follow- up film in 3 months was recommended. Additionally the patient's hemoglobin is moderately elevated and further outpatient evaluation may need to be pursued. Time spent with patient: discharge greater than 30 minutes Resuscitation Status: Full Code Discharge Plan - Discharge Disposition Discharge Date: 05/02/17 Disposition: 01 Discharged Home, Self-Care *Condition: Improved Reason For Visit (Visit label in EMR): influenza A, COPD exacerbation - Discharge Medications *Discharge Medications: New Albuterol HFA Inhaler [Ventolin Hfa 90 mcg/actuation] 2 puff ORAL INH Q4H PRN #1 inhaler PRN Reason: Shortness Of Air/Wheezing PredniSONE [Deltasone 20 mg] 40 mg PO WB #10 tab Acetaminophen [Tylenol] 325 - 650 mg PO Q5H PRN tab PRN Reason: Discomfort Continue Losartan Potassium [Cozaar] 25 mg PO DAILY Changed Budesonide 1 ampul INH BID #0 Warfarin [Coumadin] 2 mg PO QTUTHSA #0 Warfarin [Coumadin] 3 mg PO QMWFSU #0 Arformoterol Neb [Brovana Neb] 1 vial INH BID #0 - Discharge Packet/Instructions *Diet: Regular, minimize salt *Activity: As tolerates *Pain Management/Treatment: Tylenol per label instructions if you needs something *Wound Care: Not applicable Additional Instructions: Take prednisone for the next week-2 tablets daily for 3 days (Tuesday, Tuesday, ) then 1 tablet daily. Change warfarin to 2 mg on Nbrmsmh-Ufntyfyx-qbj Tuesday; and 3 mg 4 days a week on Tuesday- Bqeofacpl-Fclvsl-tif Tuesday because your INR has been slightly low recently. Increase your breathing treatments at home to twice daily on a regular basis until your cough improves or you rediscuss with Meenakshi. Use Ventolin inhaler 2 puffs every 4 hours as needed to help control your cough or if you're short of breath. Schedule follow-up office of visit in approximately 1 week. *Expected Signs/Symptoms: More short of breath than usual, cough will probably last at least a week but may last longer. May require additional workup for cause of cough since it's existed longer than influenza. *Notify Physician if: You begin coughing up blood, become lightheaded or pass out from coughing *During Business Hours Contact: [facility] [place] *After Business Hours Contact: Call [facility] at [phone] and ask that the on-call physician be paged *Pending Lab/Results: No Pending Lab - Referrals/Follow Up *Referrals/Follow Up: Meenakshi Crump APRN [Family Provider] - 1 Week - Patient Handouts Patient Handouts: Influenza (GEN), COPD (Chronic Obstructive Pulmonary Disease ) (DC) - Dismissal Complete Discharge Instructions are:: Complete Physician Narrative - Narrative Attestation Narrative: Date: 05/02/17 Time: [id number]
== END 2017-05-02 20:30 | disposition home or self-care (01) ==
LOC: MED 14:26 → ED 14:26 → MED 18:18
PROVIDERS: ADMIT Internal Medicine; ATTEND Internal Medicine